=== PATIENT | female | born 1965 | race Two or more races ===

== ENCOUNTER → 2020-09-30 | Outpatient (CLI) | payer OTHER ==
[~2020-09-30] MED LIST: CLONAZEPAM1 MG PO; COZAAR25 MG PO; DOXEPIN HCL100 MG PO; ESTAZOLAM2 MG PO; FIORICET 50-301 EACH PO; NORVASC5 MG PO; RISPERDAL1 MG PO; SERTRALINE HCL50 MG PO
== END | disposition home or self-care (01) ==
LOC: TOM 09:48
DX: K57.30 Diverticulosis of large intestine without perforation or abscess without bleeding (principal); R14.0 Abdominal distension (gaseous); K57.10 Diverticulosis of small intestine without perforation or abscess without bleeding; K76.89 Other specified diseases of liver; Z86.010 Personal history of colon polyps; R74.8 Abnormal levels of other serum enzymes; K59.09 Other constipation